=== PATIENT | female | born 1955 | race Caucasian/White ===

== ENCOUNTER → 2018-01-09 10:00 | Outpatient (CLI) | payer OTHER ==
[2014-04-17 17:25] VITALS: BMI 27.1
--- NOTE | ~2018-01-09 | EC ---
PATIENT:LENORA GRIFFITH DATE OF SERVICE: 01/09/18 SEX: F MEDICAL RECORD: [id number] DATE OF : [birth year] LOCATION:D[facility] AGE OF PATIENT: 62 ADMISSION DATE: 01/09/18 REFERRING PHYSICIAN: INTERPRETING PHYSICIAN: PRIETO LANDA MD ECHOCARDIOGRAM REPORT ECHO CHARGES 4 ECHO COMPLETE Date: 01/09 CLINICAL DIAGNOSIS: CHEST PAIN, HTN ECHOCARDIOGRAPHIC MEASUREMENTS (adult normal given) AC root (d.<3.7cm) 3.3 cm LV Septum d (<1.2 cm> 1.3 cm Valve Excursion 1.4 cm LV Septum (systole) 1.4 cm Left Atria (s.<4.0cm> 3.5 cm LVPW d(<1.2cm) 1.4 cm RV (d.<2.3cm) 2.9 cm LVPW (sytole) 1.5 cm LV diastole(<5.6CM) 3.5 cm MV E-F(>70mm/sec) cm LV systole 2.2 cm LVOT Diameter 1.8 cm MV exc.(>10mm) 1.2 cm Est.ejection fraction (50-75%) % DOPPLER: LVIT cm/sec A 93.0 cm/sec E 72.0 cm/sec LA cm/sec RVSP 28 mmHg LVOT 103 cm/sec AOP1/2T m/s Asc. Ao 119 cm/sec RVOT 100 cm/sec RA cm/sec PA 116 cm/sec AV Gradient Peak 5.65 mmHg AV Mean 2.72 mmHg AV Area 2.4 cm MV Gradient Peak 4.09 mmHg MV Mean 1.55 mmHg MV Area cm COMMENTS: Checking Clerk: Chelle COFFMAN [employer] Team Member: 4 Dr. Landa TAPE# PACS Pericardial Effusion N DATE OF SERVICE: PROCEDURE: Transthoracic echocardiogram. FINAL IMPRESSION: 1. Left ventricle shows mild left ventricular hypertrophy, ejection fraction 65%. Inflow characteristics consistent with diastolic dysfunction. 2. The left atrium is normal size, normal function. 3. Aortic valve is normal. 4. The mitral valve has mild mitral regurgitation. ECHOCARDIOGRAM REPORT [id number] LENORA GRIFFITH 5. Tricuspid valve has mild tricuspid regurgitation. RVSP is 28 mmHg. 6. The right ventricle is normal size, normal function. 7. The right atrium is normal size, normal function. CONCLUSION: The patient has evidence of mild hypertensive heart disease with preserved LV systolic function, diastolic dysfunction. TRANSINT:[id number] Voice Confirmation ID: [id number] DOCUMENT ID: [id number] PRIETO LANDA MD at 1120 CC: [id number] DICTATION DATE: 01/11/18 0947 [employer] SPECIALIST: 01/11/18 1031 DEP CLI 01/09/18 [facility] [address] [place] [address]
[~2018-01-09 10:00] MED LIST: ARMOUR THYROID30 MG PO; BIOTIN5 MG PO; COLACE100 MG PO; FIRST-TESTOSTER60 G1 TP; HYDROCODONE-APA1 TAB PO; METAMUCIL FIB1 WAFER PO; PROTONIX40 MG PO; TRIPLE ANTIBI28.4 GM TP; VIVELLE-DO1 PATCH.B1 TD; ZOFRAN4 MG PO
== END | disposition home or self-care (01) ==
LOC: D.ECHO 10:00
DX: I10 Essential (primary) hypertension (principal); R07.9 Chest pain, unspecified; R07.2 Precordial pain; R00.2 Palpitations